=== PATIENT | male | born 1995 | race Two or more races ===

== ENCOUNTER → 2024-05-17 | Outpatient (CLI) | payer BC, MEDICAID, SELFPAY ==
--- NOTE | 2024-05-17 | XR_ITS ---
Examination: Abdomen AP single view Technique: AP portable supine abdomen, single view Exam date and time: May 17, 2024 0752 hrs. Indications: Abdominal pain constipation beginning 2 weeks ago. Findings: Moderate to large amounts of stool throughout the colon No obstruction No free air Intact osseous structures Impression: Moderate to large amounts of stool throughout the colon
[2024-05-17 08:31] LABS: Basophils % (Auto) 0 % (0-2.5); Eosinophils # (Auto) 0.1 Thou/mm3 (0.0-0.5); Eosinophils % (Auto) 1 % (0-10); Hematocrit 42.4 % (41.0-53.0); Hemoglobin 14.7 g/dL (13.5-16.0); Immature Granulocytes % (Auto) 1 % (0-0); Immature Granulocytes Auto 0.03 Thou/mm3 (0.00-0.00); Lymphocytes # (Auto) 1.6 Thou/mm3 (1.0-4.8); Lymphocytes % (Auto) 30 % (10-50); Mean Corpuscular HGB Conc 34.7 g/dl (31.0-37.0); Mean Corpuscular Hemoglobin 28.1 pg (25.0-35.0); Mean Corpuscular Volume 81 fL (80-100); Monocytes # (Auto) 0.4 Thou/mm3 (0.0-0.8); Monocytes % (Auto) 7 % (0-12); Neutrophils # (Auto) 3.3 Thou/mm3 (1.8-7.7); Neutrophils % (Auto) 61 % (37-80); Nucleated Red Blood Cell % 0 /100 WBC (0); Platelet Count 196 Thou/mm3 (140-440); RDW Standard Deviation 36.7 fL (35.1-43.9); Red Blood Count 5.23 Miln/mm3 (4.50-5.90); White Blood Count 5.4 Thou/mm3 (3.8-10.6)
[2024-05-17 09:28] LABS: Collection Type, Urine Clean Catch
[2024-05-17 09:46] LABS: Alanine Aminotransferase 45 U/L (10-49); Albumin, Serum 4.7 gm/dL (3.5-5.0); Alkaline Phosphatase 69 U/L (46-116); Anion Gap 8 (7-16); Aspartate Amino Transferase 27 U/L (0-34); BUN/Creatinine Ratio 24 Ratio (12-20); Bilirubin,Total 0.4 mg/dL (0.3-1.2); Blood Urea Nitrogen 17 mg/dL (9-23); Calcium 9.4 mg/dL (8.3-10.6); Calcium (Corrected) 9.4 mg/dL (8.5-10.1); Carbon Dioxide 27.4 mMol/L (20.0-31.0); Chloride 104 mMol/L (98-107); Creatinine (Component) 0.7 mg/dL (0.6-1.3); Globulin 2.3 gm/dL (2.3-3.5); Glucose 99 mg/dL (74-106); Lipase 44 U/L (12-53); Osmolality,Calculated 279 (275-295); Potassium 4.4 mMol/L (3.4-5.1); Sodium 139 mMol/L (136-145); eGFR > 60 See Note
[2024-05-17 09:48] LABS: Bilirubin,Urine Negative (Negative); Blood,Urine Negative (Negative); Clarity,Urine Clear (Clear/Hazy); Color,Urine Lt-Yellow (Lt Yel-Yel); Glucose, Urine Negative (Negative); Ketones,Urine Negative (Negative); Leukocyte Esterase,Urine Negative (Negative); Nitrite,Urine Negative (Negative); PH,Urine 7.5 (5.0-7.0); Protein,Urine Trace (Neg - Trace); RBC,Urine 3 /hpf (0-3); Specific Gravity,Urine 1.024 (1.001-1.035); Squamous Epithelial Cell,Urine 2 /hpf (0-5); Urobilinogen,Urine Negative mg/dL (0.0-1.0); WBC,Urine < 1 /hpf (0-5)
[2024-05-17 14:54] LABS: Amylase 63 U/L (30-118)
== END | disposition home or self-care (01) ==
LOC: CDIM 07:27 → COPL 08:09
PROVIDERS: Referring Provider Specialist; Visit Provider Radiology Diagnostic Radiology
DX: K59.00 Constipation, unspecified (principal); R10.84 Generalized abdominal pain
CPT/HCPCS: 36415; 74018; 80053; 81001; 82150; 83690; 85025

== ENCOUNTER 2025-01-05 22:48 | Emergency (ER) | payer BC, MEDICAID, SELFPAY ==
[2025-01-05 22:49] VITALS: BMI 35.9
[2025-01-05 22:51] VITALS: BP 203/146; BP 207/118; PULSE 91; RESP 18; TEMP 36.6; O2SAT 98
--- NOTE | 2025-01-05 22:54 | EKG_ITS ---
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
[2025-01-05 23:23] VITALS: BP 181/104; BP 183/108; PULSE 88; RESP 19; TEMP 36.8; O2SAT 100
[2025-01-05 23:40] LABS: Basophils # (Auto) 0.0 Thou/mm3 (0.0-0.2); Basophils % (Auto) 0 % (0-2.5); Eosinophils # (Auto) 0.1 Thou/mm3 (0.0-0.5); Eosinophils % (Auto) 1 % (0-10); Hematocrit 44.7 % (41.0-53.0); Hemoglobin 15.6 g/dL (13.5-16.0); Immature Granulocytes Auto 0.06 Thou/mm3 (0.00-0.00); Lymphocytes # (Auto) 2.2 Thou/mm3 (1.0-4.8); Lymphocytes % (Auto) 29 % (10-50); Mean Corpuscular HGB Conc 34.9 g/dl (31.0-37.0); Mean Corpuscular Hemoglobin 28.7 pg (25.0-35.0); Mean Corpuscular Volume 82 fL (80-100); Monocytes # (Auto) 0.5 Thou/mm3 (0.0-0.8); Monocytes % (Auto) 7 % (0-12); Neutrophils # (Auto) 4.7 Thou/mm3 (1.8-7.7); Neutrophils % (Auto) 62 % (37-80); Nucleated Red Blood Cell # 0.00 Thou/mm3 (0.00-0.00); Nucleated Red Blood Cell % 0 /100 WBC (0); Platelet Count 216 Thou/mm3 (140-440); RDW Standard Deviation 38.2 fL (35.1-43.9); Red Blood Count 5.44 Miln/mm3 (4.50-5.90); White Blood Count 7.6 Thou/mm3 (3.8-10.6)
--- NOTE | 2025-01-05 23:47 | XR_ITS ---
Examination: CT abdomen and pelvis without contrast. Coronal 3-D reconstructions. Sagittal 2-D reconstructions. Date and time of exam:January 06, 2025, 0025 hours: Comparison March 24, 2018 INDICATIONS: Epigastric pain and abdominal pain beginning 2 hours ago CTDI: vol (mGy): 11.21 DLP: (mGycm): 738 Technique: Axial images of the abdomen have been obtained, 3 mm slice thickness Intravenous contrast material has not been administered. Low dose protocols were performed. One or more of the following dose reduction techniques were used; automated exposure control, adjustment of the mA and/or KV according to patient size, use of iterative reconstruction technique. Findings: Hepatomegaly 20 cm with diffuse fatty infiltration throughout the liver Splenomegaly AP dimension 14 cm Normal gallbladder Normal pancreas No renal or ureteral calculi, no hydronephrosis Aorta normal size Normal appendix A few small bowel loops fluid distended in the pelvis Urinary bladder intact No prostatomegaly The osseous structures are intact IMPRESSION: Hepatosplenomegaly Negative for pancreatitis Normal appendix
--- NOTE | 2025-01-05 23:48 | EDNOTE_ITS ---
ED General RME/HPI General Chief complaint: Abdominal Pain Stated complaint: ABD PAIN, HISTORY OF ULCERS Time Seen by Provider: 01/05/25 23:24 Arrival date/time: 01/05/25 22:48 RME / HPI RME / HPI narrative: 29-year-old male with past medical history of previous gastric ulcers comes into the ED with chief complaints of abdominal pain. Patient states that he is currently getting Zepbound and he is currently on his second month with the dosage of 2.5 mg. Patient stated that the first time he used it he did get similar pain, but pain subsided around 5 minutes after started. Patient states that tonight his pain was 10 out of 10 and he came into the ED because of it. Denies having any radiation of the pain. Also states that he has some associated nausea, but has not been having any vomiting. Denies having any bowel changes, chest pain, shortness of breath, headache, or burning sensation in urination. Otherwise has no other complaint at this time. Denies smoking, illicit drugs, admits social drinking. Allergies: NKDA Related Data Home Medications ?Medication ?Instructions ?Recorded ?Confirmed omeprazole 20 mg capsule,delayed 40 mg PO DAILY 12/09/23 release Allergies Allergy/AdvReac Type Severity Reaction Status Date / Time No Known Allergies Allergy Verified 01/05/25 22:49 Review of Systems Review of Systems Systems Reviewed: All systems reviewed, normal except as documented Past Medical History Past Medical History NEUROLOGIC: Negative Neurological Disorders or Seizures CARDIAC: Negative Cardiac Disorders or Congestive Heart Failure RESPIRATORY: Negative Chronic Obstructive Pulmonary Disease (COPD) or Asthma GASTROINTESTINAL: Negative Gastrointestinal Disorders GENITOURINARY: Negative Genitourinary Disorders or Renal Disease MUSCULOSKELETAL: Negative Musculoskeletal Disorders ENDOCRINE: Negative Endocrine Disorders, Diabetes Mellitus Type 1 or Diabetes Mellitus Type 2 HEMATOLOGIC: Negative Blood Disorders or Sickle Cell Disease OTHER HISTORY: Negative Autoimmune Disease, Blood Transfusions, Anesthesia Reactions, Chicken Pox, Measles, Mumps or Cancer Social History SMOKING STATUS: Never smoker ED Exam Narrative Physical exam: Gen: A&O X 3, NAD HEENT: NCAT, EOMI, Pupils reactive CYNTHIA, not icteric. External ears normal. No rhinorrhea. Moist mucous membranes. Neck: Supple, full range of motion, no observable masses, No meningeal sign. Lungs: No Respiratory distress, clear bilateral. CV: RRR, no murmurs. Abdomen: Soft,but distended and generalized tenderness to palpitation, No rebound tenderness. MSK: No joint swelling, no redness, peripheral pulses presents, lumbar with no edema. Skin: No rashes, petechiae, lesions.. Neuro: No focal neurological deficits appreciated, sensory and motor intact. Psych: Cooperative, appropriate mood and effect. Course Quality Measures none Orders Category Date Time Status EKG (ED ONLY) *Do not use* NOW Care 01/05/25 22:[address] abdomen pelvis wo con Stat Exams 01/05/25 23:47 Taken EKG (ED Only) Stat Exams 01/05/25 22:54 Draft B-Type Natriuretic Peptide Stat Lab 01/05/25 23:22 Completed CBC Stat Lab 01/05/25 23:22 Completed Comprehensive Metabolic Panel Stat Lab 01/05/25 23:22 Completed Drug Screen,Urine Stat Lab 01/05/25 22:54 Ordered Lactic Acid [Lactate (Lactic Acid)] Stat Lab 01/05/25 23:59 Completed Lipase Stat Lab 01/05/25 23:22 Completed Magnesium Stat Lab 01/05/25 23:22 Completed Partial Thromboplastin Time Stat Lab 01/05/25 23:22 Completed Prothrombin Time with INR Stat Lab 01/05/25 23:22 Completed UA, C/S IF [Urinalysis, C/S if Indicated] Stat Lab 01/05/25 22:55 Ordered Morphine Inj Med 01/05/25 23:47 Discontinued 1 mg IVP X1 ONE Vital Signs Vital signs: Vital Signs Temperature 97.9 F 01/05/25 22:51 Pulse Rate 91 01/05/25 22:51 Respiratory Rate 18 01/05/25 22:51 Blood Pressure 207/118 H 01/05/25 22:51 Pulse Oximetry (%) 98 01/05/25 22:51 Oxygen Delivery Method Room Air 01/05/25 22:51 Discharge Plan Plan Patient Disposition: HOME (Self Care) Prescriptions/Referrals Prescriptions/Med Rec: No Action omeprazole 20 mg capsule,delayed release(DR/EC) 40 mg PO DAILY Patient Comments: TAKE 1 CAPSULE BY MOUTH EVERY DAY Referrals: No Primary/Family,Physician [Primary Care Provider] - In 1 week Problem List Clinical Impression: Abdominal pain Patient/Caregiver Discharge Instructions Other Activity Instructions:: Recommend follow-up with primary care physician within 5 days Recommend discontinuing Zepbound given ongoing abdominal pain. Okay to take Tylenol every 6 hours for pain for the next 3 days. Come back to the ED if abdominal pain worsens, you develop fevers, nausea, vomiting, or any other worsening symptoms. Education Materials: Abdominal Pain, ED Pain, Acute, Uncertain Cause Print Language: Luxembourgish Stand Alone Forms: [employer] Award Info., Patient Portal Info Letter MDM Narrative MDM hospital course: Patient was seen and evaluated by myself upon arrival. Ordered diagnostic imaging and labs. Also gave morphine 1 mg IV x 1 for pain. Patient blood pressure was elevated, likely due to abdominal pain. Will reevaluate after pain medication is administered. 1: 42: Abdomen CT pulmonary reports came back and did not show any pancreatitis or any abdominal pathology. At this time patient's pain is better. Will discharge with instructions to discontinue Cipro for now follow-up with primary care physician. Patient agrees with plan. Case disclosed with Attending Dr. Chase Hansen PGY2 Disclaimer: Even though this this note was dictated by speech recognition and even though it was carefully revised there may still be minor errors in outbound sales specialist due to voice recognition software. Medication Administration(s) Medication Administration History Discontinued Medications Morphine Sulfate (Morphine Sulf Inj 10 Mg/Ml Vial) 1 mg IVP X1 ONE Stop: 01/05/25 23:48 Last Admin: 01/06/25 00:08 Dose: 1 mg Documented By: BIRD
[2025-01-05 23:50] LABS: INR 1.0 (0.9-1.3); Partial Thromboplastin Time 29.6 Seconds (22.0-36.0); Prothrombin Time 10.8 Seconds (9.0-12.2)
[2025-01-05 23:59] LABS: Alanine Aminotransferase 43 U/L (10-49); Albumin, Serum 5.0 gm/dL (3.5-5.0); Albumin/Globulin Ratio 2.0 (1.2-2.2); Alkaline Phosphatase 75 U/L (46-116); Anion Gap 12 (7-16); Aspartate Amino Transferase 25 U/L (0-34); BUN/Creatinine Ratio 12 Ratio (12-20); Bilirubin,Total 0.4 mg/dL (0.3-1.2); Blood Urea Nitrogen 12 mg/dL (9-23); Calcium 9.7 mg/dL (8.3-10.6); Calcium (Corrected) 9.7 mg/dL (8.5-10.1); Carbon Dioxide 26.1 mMol/L (20.0-31.0); Chloride 105 mMol/L (98-107); Creatinine (Component) 1.0 mg/dL (0.6-1.3); Estimated Creatinine Clearance 135.0 mL/min (>60); Globulin 2.5 gm/dL (2.3-3.5); Glucose 106 mg/dL (74-106); Lipase 43 U/L (12-53); Magnesium 1.7 mg/dL (1.6-2.6); Osmolality,Calculated 284 (275-295); Potassium 3.6 mMol/L (3.4-5.1); Sodium 143 mMol/L (136-145); Total Protein 7.5 gm/dL (5.7-8.2); eGFR > 60 See Note
[2025-01-06] MEDS: MORPHINE SULF INJ 10 MG/ML VIAL IVP (00:08)
[2025-01-06 00:13] LABS: Lactate (Lactic Acid) 1.4 mMol/L (0.4-2.0)
[2025-01-06 00:14] LABS: B-Type Natriuretic Peptide < 20 pg/mL (0-100)
--- NOTE | 2025-01-06 01:18 | PRELIM_ITS ---
CT scan of the abdomen and pelvis without intravenous contrast (axial sections with sagittal and coronal reformats) January 06, 2025 0024 hours Clinical History: Abdominal pain, rule out pancreatitis. No prior study is available for comparison. Findings: The lung bases are clear. The liver, gallbladder, pancreas, spleen, kidneys and adrenals are unremarkable on this noncontrast study. No evidence of bowel obstruction. There are multiple colonic diverticula without evidence of diverticulitis. The appendix is within normal limits (images [id number]). There is no mesenteric or retroperitoneal adenopathy. The urinary bladder is unremarkable. There is no free fluid or free air. The osseous structures are unremarkable. Impression: No evidence of acute intra-abdominal or pelvic pathology. No evidence of acute pancreatitis on this noncontrast study. Report Electronically Signed By: Gene Donato 01/06/2025 1:17:31 AM [EST]
[2025-01-06 02:24] VITALS: BP 129/80; PULSE 83; RESP 14; TEMP 36.6; O2SAT 100
== END 2025-01-06 02:30 | disposition home or self-care (01) ==
PROVIDERS: Emergency Provider Emergency Medicine
DX: R10.9 Unspecified abdominal pain (principal); Z87.11 Personal history of peptic ulcer disease
CPT/HCPCS: 36415; 74176; 80053; 80307; 81001; 83605; 83690; 83735; 83880; 85025; 85610; 85730; 93005; 96374; 99283; J2270